=== PATIENT | female | born 1975 | race Caucasian/White ===

== ENCOUNTER 2018-08-26 09:53 | Emergency (ER) | payer OTHER ==
--- NOTE | 2018-08-26 10:26 | Emergency Department Record ---
History of Present Illness - General Chief complaint: Pain Stated complaint: SHARP PAIN IN CHEST Time Seen by Provider: 08/26/18 10:01 Source: Patient Mode of Arrival: Ambulatory Limitations: No limitations - History of Present Illness Initial comments: The patient is here due to a 4 day hx of sharp L upper chest pain. The pain is intermittent and lasts 5-10 seconds at a time and the onset was after picking up her daughter 3 days ago. There is no radiation to the jaw or arm or back with the pain. She denies any SOB, ABHAY, sweating, pleuritic pain or nausea with it but does feel "flushed" with the pain. The patient may get 1 or 2 episodes every hour of the pain and it does not seem to be related to eating, exertion, or chest rotation. She has had a similar issue last year with what she presumed was a chest pulled muscle. The patient has no recent hx of fevers or chills and states she has had no CP with exertion. The patient's only cardiac risk factor is a family hx of CAD. MD Complaint: Other Onset/Timin -: Days(s) Severity scale (1-10): 3 Quality: Sharp Consistency: Intermittent Improves with: Nothing Worsens with: Nothing Associated Symptoms: Denies other symptoms - Related Data Previous Rx's Medication Instructions Recorded Naproxen [Naprosyn] 500 mg PO BID #14 tablet. 08/26/18 Allergies Allergy/AdvReac Type Severity Reaction Status Date / Time No Known Drug Allergies Allergy Verified 07/31/15 10:16 Travel Screening - Travel/Exposure Within Last 30 Days Have you traveled within the last 30 days?: Yes Location Detail:: [place] - Travel/Exposure Within Last Year Have you traveled outside the [place] in the last year?: No - Travel Symptoms Symptom Screening: None Review of Systems Constitutional: Denies: Chills, Fever Eyes: Denies: Eye discharge ENT: Denies: Congestion Respiratory: Denies: Cough, Dyspnea Cardiovascular: Reports: Chest pain. Denies: Arrhythmia, Dyspnea on exertion Endocrine: Denies: Fatigue Gastrointestinal: Denies: Nausea Genitourinary: Denies: Dysuria Musculoskeletal: Denies: Arthralgia, Back pain Skin: Denies: Bruising Past Medical History - SOCIAL HISTORY Smoking Status: Never smoker Drug Use Detail:: Marijuana - RESPIRATORY Hx Respiratory Disorders: Yes Hx Pneumonia: Yes - CARDIOVASCULAR Hx Cardio Disorders: No - NEURO Hx Neuro Disorders: No - GI Hx GI Disorders: No - Hx Genitourinary Disorders: No - ENDOCRINE Hx Endocrine Disorders: No - MUSCULOSKELETAL Hx Musculoskeletal Disorders: No - PSYCH Hx Psych Problems: No - HEMATOLOGY/ONCOLOGY Hx Hematology/Oncology Disorders: No Family Medical History Any Significant Family History?: Yes Hx Cancer: Father Hx Diabetes: Father Hx Heart Disease: Father Hx Liver Disease: Father Physical Exam - General General Appearance: Alert, Oriented x3, Cooperative, No acute distress - Head Head exam: Atraumatic, Normocephalic, Normal inspection - Eye Eye exam: Normal appearance, PERRL, EOMI - ENT Throat exam: Normal inspection. negative: Tonsillar erythema, Tonsillar exudate - Neck Neck exam: Normal inspection, Full ROM. negative: Lymphadenopathy, Meningismus , Tenderness - Respiratory Respiratory exam: Normal lung sounds bilaterally, Chest wall tenderness (The pain is 100% reproducible to palpation of the L upper chest wall.). negative: Respiratory distress - Cardiovascular Cardiovascular Exam: Regular rate, Normal rhythm, Normal heart sounds - GI/Abdominal GI/Abdominal exam: Soft, Normal bowel sounds. negative: Tenderness - Extremities Extremities exam: Normal inspection, Full ROM, Normal capillary refill. negative: Calf tenderness, Pedal edema, Tenderness - Neurological Neurological exam: Alert, Normal gait. negative: Abnormal gait, Motor sensory deficit Course Vital Signs 08/26/18 09:55 Temperature 98.0 F Pulse Rate 91 H Respiratory 20 Rate Blood Pressure 164/102 Pulse Ox 98 - Reevaluation(s) Reevaluation #1: The patient is doing a lot better at this time. Her pain is 100% resolved with the Toradol. I did discuss the fact that her cardiac workup was very normal and that I clearly feel the cause of her pain is costochodritis. She is to see her PCP for recheck and also to have the elevated liver enzymes and blood sugar evaluated further. 08/26/18 11:32 Medical Decision Making - Data Complexity MDM Data: Labs Ordered and/or Reviewed, X-Ray Ordered and/or Reviewed, EKG Ordered and/or Reviewed - Lab Data Result diagrams: 08/26/18 10:30 08/26/18 10:30 - EKG Data -: EKG Interpreted by Me EKG: No Acute Changes, Normal EKG - Radiology Data Radiology results: Report reviewed (CXR: Neg) Disposition Disposition: Discharge Clinical Impression: Chest wall pain Disposition: Home, Self-Care Condition: (2) Stable Instructions: Chest Wall Pain (ED) Additional Instructions: Please take the Naprosyn for pain and please decrease your alcohol intake. Please see your family doctor for recheck and to have the elevated blood sugar and liver enzymes evaluated further. Return to the ER for any worsening symptoms. Prescriptions: Naproxen [Naprosyn] 500 mg PO BID #14 tablet.dr Forms: Patient Portal Access Time of Disposition: 11:35 Quality - Quality Measures Quality Measures: N/A - Blood Pressure Screening View Details: Yes Does Patient Have Any of the Following: No Blood Pressure Classification: Hypertensive Reading Systolic Measurement: 164 Diastolic Measurement: 102 Screening for High Blood Pressure: < First Hypertensive BP, F/U Documented > [ G8950] First Hypertensive Follow-up Interventions: Referral to alternative/primary care provider.
[2018-08-26 10:34] LABS: BASO % 0.3 % (0-6); EOS % 2.5 % (0-6); GRAN % 74.2 % (47-80); HEMATOCRIT 47.7 % (35.0-47.0); HEMOGLOBIN 15.6 gm/dl (11.6-16.0); MEAN CELL VOLUME 87.4 fl (81-97); MEAN CORPUSCULAR HEMOGLOBIN 28.5 pg (27-33); MEAN CORPUSCULAR HGB CONC 32.7 g/dl (32-36); MEAN PLATELET VOLUME 9.5 fl (7.4-10.4); PLATELET COUNT 196 K/uL (130-400); RED BLOOD COUNT 5.46 M/uL (3.80-5.40); RED CELL DISTRIBUTION WIDTH 13.7 % (11.5-14.5); WHITE BLOOD COUNT W/O DIFF 6.3 K/uL (4.2-12.2)
[2018-08-26 10:44] LABS: BLOOD UREA NITROGEN 7 mg/dL (6-20); CREATININE 0.6 mg/dL (0.5-0.9); EST GLOMERULAR FILTRATION RATE > 60 mL/min; TOTAL PROTEIN 7.2 g/dL (6.6-8.7)
[2018-08-26 10:46] LABS: GLUCOSE,RANDOM 228 mg/dL (74-109)
[2018-08-26 10:49] LABS: ALB/GLOB RATIO 1.2 (1.1-1.8); ALBUMIN 3.9 g/dL (4.0-5.0); ALKALINE PHOSPHATASE 74 U/L (35-104); ALT/SGPT 104 U/L (<33); AST/SGOT 164 U/L (10.0-35.0); CREATINE PHOSPHOKINASE 57 U/L (26-192)
[2018-08-26 10:51] LABS: CKMB < 1.0 ng/mL (<3.77)
[2018-08-26] MEDS ORDERED: KETOROLAC 30 MG/ML VIAL IVP ONE (11:02)
--- NOTE | 2018-08-28 06:45 | RADIOLOGY REPORT ---
DATE: 08/26/2018. EXAM: TWO-VIEW CHEST. HISTORY: Chest pain. TECHNIQUE: Frontal and lateral views of the chest were performed. FINDINGS: Heart size is normal. Lung moore are clear. No infiltrate or pleural effusion. Osseus structures are normal. IMPRESSION: NEGATIVE CHEST EXAMINATION. Job Number: [id number] MTDD
== END 2018-08-26 11:45 | disposition home or self-care (01) ==
LOC: ER 09:53
DX: R07.89 Other chest pain (principal); R94.5 Abnormal results of liver function studies
CPT/HCPCS: 99284 ×2; 96374; 82550; 85025; 82553; 80053; 84484; 85379; 71046; 93005; 93010; J1885

== ENCOUNTER 2018-09-22 12:55 | Emergency (ER) | payer OTHER ==
[2018-09-22] MEDS ORDERED: 0.9 % SODIUM CHLORIDE 1,000 ML BAG IV ONE (14:02)
[2018-09-22] MEDS ORDERED: HYDROMORPHONE HCL 2 MG/ML VIAL IVP ONE (14:06)
[2018-09-22 14:13] LABS: ABSOLUTE NEUTROPHIL COUNT 5.98; BASO % 0.4 % (0-6); EOS % 1.5 % (0-6); GRAN % 73.8 % (47-80); HEMATOCRIT 49.7 % (35.0-47.0); HEMOGLOBIN 16.6 gm/dl (11.6-16.0); LYMPH % 17.3 % (16-45); MEAN CELL VOLUME 85.8 fl (81-97); MEAN CORPUSCULAR HEMOGLOBIN 28.6 pg (27-33); MEAN CORPUSCULAR HGB CONC 33.4 g/dl (32-36); MEAN PLATELET VOLUME 9.8 fl (7.4-10.4); PLATELET COUNT 234 K/uL (130-400); RED BLOOD COUNT 5.79 M/uL (3.80-5.40); RED CELL DISTRIBUTION WIDTH 13.3 % (11.5-14.5); URINE BILIRUBIN SMALL (NEGATIVE); URINE BLOOD LARGE (NEGATIVE); URINE GLUCOSE (UA) NEGATIVE (NEGATIVE); URINE KETONE 15 mg/dL (NEGATIVE); URINE LEUKOCYTE ESTERASE NEGATIVE (NEGATIVE); URINE NITRITE NEGATIVE (NEGATIVE); WHITE BLOOD COUNT W/O DIFF 8.1 K/uL (4.2-12.2)
[2018-09-22 14:14] LABS: URINE APPEARANCE CLOUDY
[2018-09-22] MEDS ORDERED: ONDANSETRON HCL IV 4 MG/2 ML VIAL IVP ONE (14:14)
[2018-09-22 14:15] LABS: URINE COLOR DARK YELLOW
[2018-09-22 14:16] LABS: HCG,QUALITATIVE URINE NEGATIVE (NEGATIVE)
[2018-09-22 14:19] LABS: URINE AMORPHOUS SEDIMENT 1+; URINE BACTERIA FEW; URINE EPITHELIAL CELLS 0 - 2 (FEW); URINE MUCUS LIGHT; URINE WBC 0 - 2 (0-2/hpf)
--- NOTE | 2018-09-22 14:20 | Emergency Department Record ---
History of Present Illness - General Chief Complaint: Abdominal Pain Stated Complaint: ABDOMINAL PAIN Time Seen by Provider: 09/22/18 13:56 Source: Patient Mode of Arrival: Ambulatory Limitations: No limitations - History of Present Illness Initial Comments: pt started having luq pain 2 days ago which has spread across abdomen and is getting worse. she has n/v/c. she has blood in her urine MD Complaint: Abdominal pain Onset/Timin -: Days(s) Location: Diffuse Radiation: None Migration to: No migration Severity: Moderate Severity scale (1-10): 5 Quality: Cramping, Sharp Consistency: Intermittent Improves With: Nothing Worsens With: Nothing Associated Symptoms: Constipation, Nausea - Related Data Patient : No Home Medications Medication Instructions Recorded Confirmed Last Taken Phentermine HCl [Adipex-P] 37.5 mg PO DAILY 09/22/18 09/22/18 Unknown Semaglutide [Ozempic] 0.25 mg SQ WEEKLY 09/22/18 09/22/18 Unknown Previous Rx's Medication Instructions Recorded Hydrocodone/Acetaminophen [Anvik 1 each PO Q6HR #10 tablet 09/22/18 5-325 Tablet] Tamsulosin HCl [Flomax] 0.4 mg PO DAILY #7 cap.er.24h 09/22/18 Allergies Allergy/AdvReac Type Severity Reaction Status Date / Time No Known Drug Allergies Allergy Verified 07/31/15 10:16 Travel Screening - Travel/Exposure Within Last 30 Days Have you traveled within the last 30 days?: No Review of Systems Reviewed: No additional complaints except as noted below Constitutional: Reports: As per HPI. Denies: Chills, Fever, Malaise, Night sweats, Weakness, Weight change Eyes: Reports: As per HPI. Denies: Eye discharge, Eye pain, Photophobia, Vision change ENT: Reports: As per HPI. Denies: Congestion, Dental pain, Ear pain, Epistaxis , Hearing loss, Throat pain Respiratory: Reports: As per HPI. Denies: Cough, Dyspnea, Hemoptysis, Stridor, Wheezes Cardiovascular: Reports: As per HPI. Denies: Arrhythmia, Chest pain, Dyspnea on exertion, Edema, Murmurs, Orthopnea, Palpitations, Paroxysmal nocturnal dyspnea, Rheumatic Fever, Syncope Endocrine: Reports: As per HPI. Denies: Fatigue, Heat or cold intolerance, Polydipsia, Polyuria Gastrointestinal: Reports: As per HPI, Abdominal pain, Constipation, Nausea, Vomiting. Denies: Diarrhea, Hematemesis, Hematochezia, Melena Genitourinary: Reports: As per HPI. Denies: Abnormal menses, Discharge, Dyspareunia, Dysuria, Frequency, Hematuria, Incontinence, Retention, Urgency Musculoskeletal: Reports: As per HPI. Denies: Arthralgia, Back pain, Gout, Joint swelling, Myalgia, Neck pain Skin: Reports: As per HPI. Denies: Bruising, Change in color, Change in hair/ nails, Lesions, Pruritus, Rash Neurological: Reports: As per HPI. Denies: Abnormal gait, Confusion, Headache, Numbness, Paresthesias, Seizure, Tingling, Tremors, Vertigo, Weakness Psychiatric: Reports: As per HPI. Denies: Anxiety, Auditory hallucinations, Depression, Homicidal thoughts, Suicidal thoughts, Visual hallucinations Hematological/Lymphatic: Reports: As per HPI. Denies: Anemia, Blood Clots, Easy bleeding, Easy bruising, Swollen glands Past Medical History - SOCIAL HISTORY Smoking Status: Never smoker - RESPIRATORY Hx Respiratory Disorders: Yes Hx Pneumonia: Yes - CARDIOVASCULAR Hx Cardio Disorders: No - NEURO Hx Neuro Disorders: No - GI Hx GI Disorders: No - Hx Genitourinary Disorders: No - ENDOCRINE Hx Endocrine Disorders: No - MUSCULOSKELETAL Hx Musculoskeletal Disorders: No - PSYCH Hx Psych Problems: No - HEMATOLOGY/ONCOLOGY Hx Hematology/Oncology Disorders: No Family Medical History Any Significant Family History?: Yes Hx Cancer: Father Hx Diabetes: Father Hx Heart Disease: Father Hx Liver Disease: Father Physical Exam - General General Appearance: Alert, Oriented x3, Cooperative, Mild distress - Head Head exam: Normal inspection - Eye Eye exam: Normal appearance, PERRL, EOMI Pupils: Normal accommodation - ENT ENT exam: Normal exam, Mucous membranes moist, Normal external ear exam, Normal orophraynx, TM's normal bilaterally Ear exam: Normal external inspection. negative: External canal tenderness Nasal Exam: Normal inspection. negative: Discharge, Sinus tenderness Mouth exam: Normal external inspection, Tongue normal Teeth exam: Normal inspection. negative: Dental caries Throat exam: Normal inspection. negative: Tonsillar erythema, Tonsillar exudate - Neck Neck exam: Normal inspection, Full ROM. negative: Tenderness - Respiratory Respiratory exam: Normal lung sounds bilaterally. negative: Respiratory distress - Cardiovascular Cardiovascular Exam: Regular rate, Normal rhythm, Normal heart sounds - GI/Abdominal GI/Abdominal exam: Soft, Normal bowel sounds. negative: Tenderness - Rectal Rectal exam: Deferred - exam: Deferred - Extremities Extremities exam: Normal inspection, Full ROM, Normal capillary refill. negative: Tenderness - Back Back exam: Reports: Normal inspection, Full ROM. Denies: Muscle spasm, Rash noted, Tenderness - Neurological Neurological exam: Alert, CN II-XII intact, Normal gait, Oriented X3 - Psychiatric Psychiatric exam: Normal affect, Normal mood - Skin Skin exam: Dry, Intact, Normal color, Warm Course Vital Signs 09/22/18 13:04 Temperature 97.8 F Pulse Rate 78 Respiratory 22 Rate Blood Pressure 144/88 Pulse Ox 100 - Reevaluation(s) Reevaluation #1: 09/22/18 16:45 pt feels much better. pain is gone Reevaluation #2: 09/22/18 16:58 d/w dr huerta who will see pt in his office unless her pain returns and then he will see her sooner Medical Decision Making - Lab Data Result diagrams: 09/22/18 13:35 09/22/18 13:35 Lab Results 09/22/18 Range/Units 13:35 WBC 8.1 (4.2-12.2) K/uL RBC 5.79 H (3.80-5.40) M/uL Hgb 16.6 H (11.6-16.0) gm/dl Hct 49.7 H (35.0-47.0) % MCV 85.8 (81-97) fl MCH 28.6 (27-33) pg MCHC 33.4 (32-36) g/dl RDW 13.3 (11.5-14.5) % Plt Count 234 (130-400) K/uL MPV 9.8 (7.4-10.4) fl Gran % 73.8 (47-80) % Lymphocytes % 17.3 (16-45) % Monocytes % 7.0 (0-9) % Eosinophils % 1.5 (0-6) % Basophils % 0.4 (0-6) % Absolute Neutrophils 5.98 Disposition Disposition: Discharge Clinical Impression: Renal lithiasis Hydronephrosis Qualifiers: Hydronephrosis type: with ureteral calculous obstruction Qualified Code(s): N13.2 - Hydronephrosis with renal and ureteral calculous obstruction Disposition: Home, Self-Care Condition: (1) Good Instructions: Kidney Stones (ED), How to Strain Your Urine (ED) Additional Instructions: follow up with dr huerta on . if pain returns dr huerta requests that you go to [facility] or [facility] where he can do surgery if necessary. push fluids. Prescriptions: Hydrocodone/Acetaminophen [Anvik 5-325 Tablet] 1 each PO Q6HR #10 tablet Tamsulosin HCl [Flomax] 0.4 mg PO DAILY #7 cap.er.24h Referrals: JACKI HUERTA M.D. [MEDICAL DOCTOR] - Forms: Patient Portal Access Quality - Quality Measures Quality Measures: N/A - Blood Pressure Screening Does Patient Have Any of the Following: No Blood Pressure Classification: Pre-Hypertensive BP Reading Systolic Measurement: 144 Diastolic Measurement: 88 Screening for High Blood Pressure: < Pre-Hypertensive BP, F/U Documented > [ G8950] Pre-Hypertensive Follow-up Interventions: Follow-up with rescreen every year.
[2018-09-22 14:22] LABS: BLOOD UREA NITROGEN 7 mg/dL (6-20)
[2018-09-22 14:23] LABS: CREATININE 0.7 mg/dL (0.5-0.9); EST GLOMERULAR FILTRATION RATE > 60 mL/min; LIPASE 73 U/L (13-60); TOTAL PROTEIN 7.8 g/dL (6.6-8.7)
[2018-09-22 14:25] LABS: GLUCOSE,RANDOM 109 mg/dL (74-109)
[2018-09-22 14:28] LABS: ALB/GLOB RATIO 1.4 (1.1-1.8); ALBUMIN 4.6 g/dL (4.0-5.0); ALKALINE PHOSPHATASE 67 U/L (35-104); ALT/SGPT 54 U/L (<33); AST/SGOT 56 U/L (10.0-35.0)
[2018-09-22] MEDS ORDERED: PROMETHAZINE HCL 12.5 MG in 0.9 % SODIUM CHLORIDE 100ML 100 ML IVPB ONE (15:10)
[2018-09-22] MEDS ORDERED: KETOROLAC 30 MG/ML VIAL IVP ONE (15:16)
--- NOTE | 2018-09-23 13:51 | CT SCAN REPORT ---
EXAM: CT OF THE ABDOMEN AND PELVIS WITHOUT CONTRAST HISTORY: STOMACH PAIN FOR TWO TO THREE DAYS. TECHNIQUE: Noncontrast CT of the abdomen and pelvis was obtained. Comparison: None. FINDINGS: The lung bases are clear. Unremarkable appearance of the liver. The gallbladder is absent. The spleen is enlarged measuring 17.2 cm in AP dimension. Mild peripancreatic fat stranding. Unremarkable adrenal glands. Mild right hydronephrosis. The left renal collecting system appears nondilated. There is a 3 mm calculus in the proximal right ureter and a 3 mm calculus in the proximal left ureter (series 601 images 98 and 102). Additional bilateral intrarenal calculi measuring up to 3 mm at the right upper pole and 2 mm at the left lower pole. Suggestion of a small partially exophytic right lower pole cyst. Unremarkable appearance of the urinary bladder. Normal appendix is seen in the right lower quadrant. No focal colonic thickening or inflammatory changes. Mild descending and sigmoid colon diverticulosis without evidence of acute diverticulitis. The stomach and small bowel are nondilated. No pneumoperitoneum. No significant free fluid. No adnexal mass identified. The abdominal aorta is nondilated. No acute osseous findings. Multilevel lumbar disk degeneration. Facet arthrosis with areas of likely central spinal canal and neural foraminal narrowing. IMPRESSION: 1. BILATERAL PROXIMAL INTRAURETERAL CALCULI MEASURING APPROXIMATELY 3 MM EACH. MILD RIGHT HYDRONEPHROSIS. NO SIGNIFICANT LEFT RENAL COLLECTING SYSTEM DILATATION. ADDITIONAL BILATERAL INTRARENAL CALCULI ARE NOTED. 2. MILD PERIPANCREATIC FAT STRANDING, RECOMMEND CORRELATION FOR EVIDENCE OF ACUTE PANCREATITIS. 3. SPLENOMEGALY. 4. NORMAL APPENDIX. 5. SIGMOID COLON DIVERTICULOSIS WITHOUT EVIDENCE OF ACUTE DIVERTICULITIS. 6. MULTILEVEL LUMBAR SPINE DEGENERATIVE FINDINGS WITH LIKELY AREAS OF CENTRAL SPINAL CANAL AND NEURAL FORAMINAL STENOSIS. 7. NOT MENTIONED ABOVE, THERE IS A SMALL FAT CONTAINING UMBILICAL HERNIA. JOB NUMBER: [id number] [facility]
== END 2018-09-22 17:28 | disposition home or self-care (01) ==
LOC: ER 12:55
DX: N13.2 Hydronephrosis with renal and ureteral calculous obstruction (principal); R11.2 Nausea with vomiting, unspecified
CPT/HCPCS: 74176; 80053; 81001; 81025; 83690; 85025; 96361; 96365; 96375; 99284; J1885; J2405; J2550; J7030